=== PATIENT | female | born 1950 | race Caucasian/White ===

== ENCOUNTER 2021-10-09 11:52 | Emergency (ER) | payer MEDICARE, OTHER ==
[2021-10-09] MEDS ORDERED: HYDROCODON-ACE1 EAC2 PO (15:54)
[2021-10-09] MEDS ORDERED: IBUPROFEN400 MG PO (15:55)
== END 2021-10-09 16:13 | disposition home or self-care (01) ==
LOC: ER1 11:52
DX: S83.92XA Sprain of unspecified site of left knee, initial encounter (principal); I10 Essential (primary) hypertension; E78.5 Hyperlipidemia, unspecified; Z88.0 Allergy status to penicillin; Z88.2 Allergy status to sulfonamides; X58.XXXA Exposure to other specified factors, initial encounter
CPT/HCPCS: 73564; 99283